=== PATIENT | male | born 1990 | race Caucasian/White ===

== ENCOUNTER 2018-09-20 18:38 | Emergency (ER) | payer BC, OTHER ==
[2018-09-20 18:58] VITALS: BP 136/94; TEMP 97.2; O2SAT 99
[2018-09-20] MEDS ORDERED: IBUPROFEN 200 MG TAB PO ONE (19:09)
[2018-09-20] MEDS ORDERED: AMOXICILLIN 500 MG CAP PO ONE (19:09)
[2018-09-20] MEDS ORDERED: ACETAMINOPHEN 500 MG TAB PO ONE (19:09)
--- NOTE | 2018-09-20 19:09 | ED.PDOC ---
History of Present Illness - General Chief Complaint: ENT Problem Stated Complaint: blood in left ear Time Seen by Provider: 09/20/18 19:05 Source: patient, Vital Signs reviewed Exam Limitations: no limitations - History of Present Illness Initial Comments: c/o bleeding from his left ear after inserting a rolled up piece of paper into it. Has stopped bleeding now. Timing/Duration: abrupt Severity: mild EENT Location: ear (L) Prearrival Treatment: no prearrival treatment Improving Factors: nothing Worsening Factors: nothing Associated Symptoms: change in hearing, other - left ear pressure/dullness Home Medications: Ambulatory Orders RX: Amoxicillin [Amoxil] 1,000 mg PO BID #40 cap 09/20/18 Review of Systems - Review of Systems Constitutional: States: no symptoms reported EENTM: States: see HPI, ear pain. Denies: ear discharge Respiratory: States: no symptoms reported Gastrointestinal/Abdominal: States: no symptoms reported Skin: States: no symptoms reported Neurological: States: no symptoms reported Past Medical History (General) - Patient Medical History Hx Stroke: No Hx Congestive Heart Failure: No Hx Diabetes: No - Vaccination History Hx Influenza Vaccination: No - Social History Hx Tobacco Use: Yes Family Medical History - Family History Father Family History: Unknown Living Status: Unknown Physical Exam - Physical Exam General Appearance: Alert, Comfortable, No apparent distress Eye Exam: bilateral normal Ear Exam: right ear: canal normal, left ear: TM red, bilateral ear: TM bulging Nasal Exam: normal inspection Neck: full range of motion, supple, normal inspection Neurologic: transportation job titles II-XII nml as tested, no motor/sensory deficits, alert, normal mood/affect, oriented x 3 Skin Exam: normal color, warm/dry Progress - Progress Progress: 09/21/18 05:01 ASSESSMENT: 28 yo male with an extensive h/o ear surgeries presents c/o bleeding from the le ft ear after inserting a FB in it. The bleeding stopped [employer]. He had ear discomfort & decreased hearing to the left ear before inserting the FB & it remains. On exam both TMs are red/purple & bulging but particularly the left. 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 No active bleeding site was seen & no TM perforation was seen. PLAN: 1. Discharge 2. amoxicillin 3. PCP/ENT f/u. Departure - Departure Clinical Impression: Otitis media Qualifiers: Otitis media type: unspecified Laterality: left Qualified Code(s): H66.92 - Otitis media, unspecified, left ear Time of Disposition: 19:06 Disposition: Discharge to Home or Self Care Condition: Good Departure Forms: ED Discharge - Pt. Copy, Patient Portal Self Enrollment Instructions: DI for Ear Pain-Adult Referrals: Evgeny Kaplan MD [Primary Care Provider] - 1-2 Days (preferably see an ENT in the next 1-2 days) Prescriptions: RX: Amoxicillin [Amoxil] 1,000 mg PO BID #40 cap Home Medications: Ambulatory Orders RX: Amoxicillin [Amoxil] 1,000 mg PO BID #40 cap 09/20/18
== END 2018-09-20 19:22 | disposition home or self-care (01) ==
LOC: ER 18:38
DX: H66.92 Otitis media, unspecified, left ear (principal); Z98.890 Other specified postprocedural states; Z87.891 Personal history of nicotine dependence